=== PATIENT | female | born 1970 | race African-American/Black ===

== ENCOUNTER → 2017-04-20 | Outpatient (CLI) | payer BC ==
[2017-04-20 11:44] LABS: BASOPHILS % 0.7 % (0.0-2.0); EOSINOPHILS % 0.5 % (0.0-5.0); HEMATOCRIT. 35.1 % (36.0-48.0); HEMOGLOBIN. 11.5 g/dL (12.0-16.0); LYMPHOCYTES % 41.3 % (20.0-50.0); MEAN CORPUSCULAR HEMOGLOBIN 26.3 pg (28.0-32.0); MEAN PLATELET VOLUME 7.1 fl (7.4-10.4); NEUTROPHILS % 51.5 % (40.0-76.0); PLATELET 372 x1000/uL (130-400); RED BLOOD CELL COUNT 4.38 mill/uL (4.2-5.4)
[2017-04-20 11:51] LABS: INR 1.1; PARTIAL THROMBOPLASTIN TIME 26.3 sec (23.4-31.0); PROTHROMBIN TIME 11.5 sec (9.4-11.6)
[2017-04-20 12:10] LABS: B-HCG QUANTITATIVE < 1 mIU/mL (<3); CARBON DIOXIDE 33 mEq/L (21-32); CHLORIDE 103 mEq/L (98-107); TOTAL IRON BINDING CAPACITY 294 ug/dL (250-450)
[2017-04-20 12:39] LABS: HEPATITIS B SURFACE ANTIGEN NEGATIVE
[2017-04-20 13:07] LABS: HEPATITIS B CORE AB IGM NEGATIVE
[2017-04-20 13:09] LABS: VITAMIN B12 SERUM > 2000.0 pg/mL (211-911)
[2017-04-20 15:34] LABS: HEPATITIS A AB IGM NEGATIVE (NEGATIVE)
[2017-04-21 09:06] LABS: FOLICLE STIMULATING HORMONE 11.9 mIU/mL (.)
[2017-04-22 13:12] LABS: CHLAMYDIA TRACHOMATIS NAA Negative (Negative); NEISSERIA GONORRHOEAE NAA Negative (Negative)
== END | disposition home or self-care (01) ==
LOC: CCL 07:56
PROVIDERS: ATTEND Internal Medicine Geriatric Medicine
DX: Z00.00 Encounter for general adult medical examination without abnormal findings (principal); Z79.899 Other long term (current) drug therapy
CPT/HCPCS: 36415; 80053; 82270; 82306; 82607; 82746; 83001; 83036; 83540; 83550; 84443; 84702; 85025; 85610; 85730; 86592; 86705; 86709; 86803; 87186; 87340; 87491; 87591

== ENCOUNTER → 2017-04-21 | Outpatient (CLI) | payer BC | END | disposition home or self-care (01) | LOC: MAMMO 08:50 | PROVIDERS: ATTEND Internal Medicine Geriatric Medicine | DX: Z12.31 Encounter for screening mammogram for malignant neoplasm of breast (principal) | CPT/HCPCS: G0202 ==

== ENCOUNTER → 2018-03-24 | Outpatient (CLI) | payer BC ==
[2018-03-24 11:08] LABS: CLARITY URINE CLEAR (CLEAR); COLOR URINE YELLOW (YELLOW); KETONES URINE NEGATIVE (NEGATIVE); LEUKOCYTE ESTERASE URINE NEGATIVE (NEGATIVE); NITRITE URINE NEGATIVE (NEGATIVE); OCCULT BLOOD URINE NEGATIVE (NEGATIVE); PH URINE 5.5 (4.5-8.0); PROTEIN URINE NEGATIVE (NEGATIVE); SPECIFIC GRAVITY URINE 1.019 (1.005-1.030); UROBILINOGEN URINE 0.2 E.U./dL (0.2-1.0)
[2018-03-24 11:15] LABS: BASOPHILS % 0.6 % (0.0-2.0); EOSINOPHILS % 0.9 % (0.0-5.0); HEMATOCRIT. 33.3 % (36.0-48.0); LYMPHOCYTES % 31.5 % (20.0-50.0); MEAN CORPUSCULAR HEMOGLOBIN 25.6 pg (28.0-32.0); MEAN CORPUSCULAR VOLUME 77.8 fL (81.0-99.0); MEAN PLATELET VOLUME 7.2 fl (7.4-10.4); MONOCYTES % 8.2 % (2.0-8.0); NEUTROPHILS % 58.8 % (40.0-76.0); PLATELET 387 x1000/uL (130-400); RED BLOOD CELL COUNT 4.28 mill/uL (4.2-5.4); RED CELL DISTRIBUTION WIDTH 17.2 % (11.6-14.6)
[2018-03-24 11:24] LABS: CHLORIDE 103 mEq/L (98-107)
[2018-03-24 11:32] LABS: LDL CHOLESTEROL 101 mg/dL (5-100)
[2018-03-24 11:33] LABS: HDL CHOLESTEROL 90 mg/dL (40-59)
[2018-03-24 11:34] LABS: TOTAL IRON BINDING CAPACITY 370 ug/dL (250-450)
[2018-03-24 11:50] LABS: VITAMIN B12 SERUM 1126 pg/mL (211-911)
== END | disposition home or self-care (01) ==
LOC: LAB 10:36
PROVIDERS: ATTEND Internal Medicine Geriatric Medicine
DX: Z00.01 Encounter for general adult medical examination with abnormal findings (principal); I10 Essential (primary) hypertension; N39.0 Urinary tract infection, site not specified
CPT/HCPCS: 36415; 80053; 80061; 81003; 82607; 83036; 83540; 83550; 84443; 85025; 86592; 87086

== ENCOUNTER → 2018-06-10 | Outpatient (CLI) | payer BC ==
[~2018-06-10] MED LIST: DIATR MEGLU/DIATRIZOATE SOLN 120ML ONE; IOHEXOL-300 100 ML BOTTLE ONE
== END | disposition home or self-care (01) ==
LOC: CT 13:04
PROVIDERS: ATTEND Internal Medicine Geriatric Medicine
DX: R10.9 Unspecified abdominal pain (principal)
CPT/HCPCS: 74178; Q9967; Q9963

== ENCOUNTER → 2018-09-05 | Outpatient (CLI) | payer BC ==
[~2018-09-05] MED LIST changes: +ALPR0.5T PO; +BUPR300T52 PO; -DIATR MEGLU/DIATRIZOATE SOLN 120ML ONE; +DOCU-138 PO; +HYDR4TAB4 PO; -IOHEXOL-300 100 ML BOTTLE ONE; +LOSA1TAB37 PO; +ONDA8TAB6 PO; +RANI150T7 PO
== END | disposition home or self-care (01) ==
LOC: MRI 11:14
PROVIDERS: ATTEND Internal Medicine Geriatric Medicine
DX: M47.817 Spondylosis without myelopathy or radiculopathy, lumbosacral region (principal); M48.061 Spinal stenosis, lumbar region without neurogenic claudication
CPT/HCPCS: 72148

== ENCOUNTER → 2018-09-09 | Outpatient (CLI) | payer BC ==
[~2018-09-09] MED LIST changes: +DIATR MEGLU/DIATRIZOATE SOLN 30ML ONE
== END | disposition home or self-care (01) ==
LOC: CT 08:34 → EEVIPCON 08:34
PROVIDERS: ATTEND Internal Medicine Geriatric Medicine
DX: C18.9 Malignant neoplasm of colon, unspecified (principal); I11.9 Hypertensive heart disease without heart failure
CPT/HCPCS: 74176; 93306; Q9963

== ENCOUNTER → 2018-09-28 | Outpatient (CLI) | payer BC ==
[~2018-09-28] MED LIST changes: -DIATR MEGLU/DIATRIZOATE SOLN 30ML ONE; +LEVOFLOXACIN 500MG PREMIX 100 ML IV ONE; +METRONIDAZOLE 500 MG PREMIX 100 ML IV ONE
[2018-09-28 09:17] LABS: CLARITY URINE CLEAR (CLEAR); COLOR URINE YELLOW (YELLOW); KETONES URINE NEGATIVE (NEGATIVE); LEUKOCYTE ESTERASE URINE NEGATIVE (NEGATIVE); NITRITE URINE NEGATIVE (NEGATIVE); OCCULT BLOOD URINE NEGATIVE (NEGATIVE); PROTEIN URINE NEGATIVE (NEGATIVE); UROBILINOGEN URINE 0.2 E.U./dL (0.2-1.0)
[2018-09-28 09:18] LABS: BASOPHILS % 0.3 % (0.0-2.0); EOSINOPHILS % 1.1 % (0.0-5.0); HEMATOCRIT. 33.3 % (36.0-48.0); HEMOGLOBIN. 10.7 g/dL (12.0-16.0); LYMPHOCYTES % 8.6 % (20.0-50.0); MEAN CORPUSCULAR HEMOGLOBIN 27.1 pg (28.0-32.0); MEAN CORPUSCULAR VOLUME 84.5 fL (81.0-99.0); MONOCYTES % 5.5 % (2.0-8.0); NEUTROPHILS % 84.5 % (40.0-76.0); RED BLOOD CELL COUNT 3.94 mill/uL (4.2-5.4); RED CELL DISTRIBUTION WIDTH 17.9 % (11.6-14.6)
[2018-09-28 09:28] LABS: CHLORIDE 105 mEq/L (98-107)
== END | disposition home or self-care (01) ==
LOC: LAB 08:45
PROVIDERS: ATTEND Internal Medicine Geriatric Medicine
DX: Z01.812 Encounter for preprocedural laboratory examination (principal); C20 Malignant neoplasm of rectum
CPT/HCPCS: 36415; 82378

== ENCOUNTER → 2018-09-30 | Outpatient (CLI) | payer BC ==
[~2018-09-30] MED LIST changes: -LEVOFLOXACIN 500MG PREMIX 100 ML IV ONE; -METRONIDAZOLE 500 MG PREMIX 100 ML IV ONE
[2018-09-30 12:26] LABS: INR 1.1; PARTIAL THROMBOPLASTIN TIME 29.4 sec (23.4-31.0); PROTHROMBIN TIME 10.6 sec (9.1-11.1)
== END | disposition home or self-care (01) ==
LOC: LAB 10:48
PROVIDERS: ATTEND Surgery
DX: K62.89 Other specified diseases of anus and rectum (principal)
CPT/HCPCS: 36415; 80076

== ENCOUNTER 2018-10-06 05:14 | Inpatient (IN) | payer BC ==
[~2018-10-06] VITALS: Ht 167.6 cm; Wt 80.3 kg
[2018-10-06] MEDS ORDERED: BUPIVACAINE HCL 0.5% (5MG/ML) 50ML ONE (06:06)
[2018-10-06] MEDS ORDERED: INDOCYANINE GREEN 25 MG VIAL IV ONE (06:06)
[2018-10-06] MEDS ORDERED: SKIN ADHESIVE 0.7 GM EA TOP ONE ×2 (06:07→06:08)
[2018-10-06] MEDS ORDERED: METHYLENE BLUE 50 MG/10 ML AMP IV ONE (06:16)
[2018-10-06] MEDS ORDERED: NORMAL SALINE 0.9% 10 ML SYR ONE (06:17)
[2018-10-06] MEDS ORDERED: BACITRACIN 50,000 UNITS/VIAL ONE (06:17)
[2018-10-06] MEDS ORDERED: BUPIVACAINE HCL/EPINEPHRINE 0.5%/0.0005 30ML ONE (06:17)
[2018-10-06] MEDS ORDERED: SODIUM CHLORIDE 0.9% IRRIG SOL 1,000 ML IR ONE (06:18)
[2018-10-06] MEDS ORDERED: SODIUM CHLORIDE 0.9% IRRIG SOL 3,000 ML IR ONE (06:18)
[2018-10-06] MEDS ORDERED: VASOPRESSIN 20 UNIT/ML 1ML ONE (06:18)
[2018-10-06] MEDS ORDERED: LACTATED RINGERS 1,000 ML IV SCH (06:25)
[2018-10-06 06:33] LABS: UCG SCREEN NEGATIVE
[2018-10-06 06:49] LABS: HEMATOCRIT. 34.1 % (36.0-48.0); HEMOGLOBIN. 11.2 g/dL (12.0-16.0); MEAN CORPUSCULAR HEMOGLOBIN 27.8 pg (28.0-32.0); MEAN CORPUSCULAR VOLUME 84.7 fL (81.0-99.0); RED BLOOD CELL COUNT 4.03 mill/uL (4.2-5.4); RED CELL DISTRIBUTION WIDTH 16.2 % (11.6-14.6)
[2018-10-06 07:18] LABS: PLATELET ESTIMATE NORMAL
[2018-10-06 08:30] VITALS: BP 104/72
[2018-10-06] MEDS ORDERED: ROCURONIUM BROMIDE 10MG/ML VIAL 5ML IV ONE (09:49)
[2018-10-06] MEDS ORDERED: ONDANSETRON HCL 4MG/2ML INJ IV PRN (13:45)
[2018-10-06] MEDS: HYDROMORPHONE HCL/PF 2MG/ML CPJ IV PRN ×8 (14:18→16:34)
[2018-10-06] MEDS ORDERED: DEXT 5%/0.45% NACL KCL 20MEQ/L 1,000 ML IV SCH (14:30)
[2018-10-06] MEDS ORDERED: DIPHENHYDRAMINE INJ IV PRN (18:00)
[2018-10-06] MEDS ORDERED: NALOXONE INJ IV PRN (18:00)
[2018-10-06] MEDS ORDERED: HYDROMORPHONE PCA 50 ML IV ONE (18:05)
[2018-10-06] MEDS: HYDROMORPHONE PCA 10MG/50ML IV PRN (18:29)
[2018-10-06 18:51] VITALS: BP 107/71
[2018-10-06 20:00] VITALS: BP 104/72
[2018-10-06] MEDS ORDERED: LEVOFLOXACIN 500MG PREMIX 100 ML IV NR (20:00)
[2018-10-06] MEDS: METRONIDAZOLE 500 MG PREMIX 100 ML IV SCH (23:27)
[2018-10-07] VITALS (11 sets, daily range): BP systolic 99–126; BP diastolic 49–83
[2018-10-07] MEDS: FAMOTIDINE 20MG/2ML VIAL IV SCH ×3 (00:34→22:11)
[2018-10-07] MEDS: METRONIDAZOLE 500 MG PREMIX 100 ML IV SCH ×2 (04:49→13:07)
[2018-10-07] MEDS: HYDROMORPHONE PCA 10MG/50ML IV PRN ×2 (04:49→23:43)
[2018-10-07] MEDS ORDERED: SODIUM CHLORIDE 0.9% 500 ML IV ONE (08:15)
[2018-10-07] MEDS: ONDANSETRON INJ IV PRN ×3 (08:51→22:11)
[2018-10-07] MEDS ORDERED: ENOXAPARIN 40MG/0.4ML SYR SUBCUT SCH (09:00)
[2018-10-07 17:03] LABS: BASOPHILS % 0.1 % (0.0-2.0); EOSINOPHILS % 0.1 % (0.0-5.0); LYMPHOCYTES % 7.1 % (20.0-50.0); MEAN CORPUSCULAR HEMOGLOBIN 27.3 pg (28.0-32.0); MEAN PLATELET VOLUME 9.8 fl (7.4-10.4); MONOCYTES % 10.2 % (2.0-8.0); NEUTROPHILS % 82.5 % (40.0-76.0); RED BLOOD CELL COUNT 2.13 mill/uL (4.2-5.4)
[2018-10-07 17:08] LABS: HEMOGLOBIN. 5.8 g/dL (12.0-16.0)
[2018-10-07 17:09] LABS: HEMATOCRIT. 18.1 % (36.0-48.0)
[2018-10-07 17:10] LABS: PLATELET 42 x1000/uL (130-400)
[2018-10-07 20:54] LABS: PLATELET ESTIMATE DECREASED
[2018-10-08] VITALS (16 sets, daily range): BP systolic 108–151; BP diastolic 66–86
[2018-10-08 04:54] LABS: HEMATOCRIT 22.5 % (36.0-48.0); HEMOGLOBIN 7.4 g/dL (12.0-16.0)
[2018-10-08 07:23] LABS: BASOPHILS % 0.3 % (0.0-2.0); HEMATOCRIT. 21.3 % (36.0-48.0); HEMOGLOBIN. 7.1 g/dL (12.0-16.0); LYMPHOCYTES % 8.1 % (20.0-50.0); MEAN CORPUSCULAR HEMOGLOBIN 28.6 pg (28.0-32.0); MEAN CORPUSCULAR VOLUME 85.5 fL (81.0-99.0); MEAN PLATELET VOLUME 8.5 fl (7.4-10.4); MONOCYTES % 11.5 % (2.0-8.0); NEUTROPHILS % 80.1 % (40.0-76.0); PLATELET 113 x1000/uL (130-400); RED BLOOD CELL COUNT 2.49 mill/uL (4.2-5.4); RED CELL DISTRIBUTION WIDTH 15.6 % (11.6-14.6)
[2018-10-08 08:02] LABS: CHLORIDE 111 mEq/L (98-107)
[2018-10-08] MEDS: FAMOTIDINE 20MG/2ML VIAL IV SCH ×2 (09:00→20:44)
[2018-10-08] MEDS: ONDANSETRON INJ IV PRN ×2 (16:22→21:02)
[2018-10-08 16:37] LABS: HEMATOCRIT 30.5 % (36.0-48.0); HEMOGLOBIN 10.3 g/dL (12.0-16.0)
[2018-10-08] MEDS: DEXT 5%/0.45% NACL 1000ML 1,000 ML IV SCH ×2 (17:21→18:30)
[2018-10-08] MEDS: MORPHINE SULFATE 4 MG/ML CPJ (NOT FOR IM USE) IV PRN (17:36)
[2018-10-08] MEDS: HYDROMORPHONE PCA 10MG/50ML IV PRN (18:34)
[2018-10-08] MEDS ORDERED: ENOXAPARIN 40MG/0.4ML SYR SUBCUT SCH (20:00)
[2018-10-08 23:38] LABS: HEMATOCRIT 28.7 % (36.0-48.0); HEMOGLOBIN 9.8 g/dL (12.0-16.0)
[2018-10-09] VITALS (11 sets, daily range): BP systolic 109–138; BP diastolic 68–84
[2018-10-09] MEDS: DEXT 5%/0.45% NACL 1000ML 1,000 ML IV SCH ×2 (03:26→15:23)
[2018-10-09 08:09] LABS: CHLORIDE 109 mEq/L (98-107)
[2018-10-09 08:25] LABS: BASOPHILS % 0.5 % (0.0-2.0); EOSINOPHILS % 0.2 % (0.0-5.0); HEMATOCRIT. 29.6 % (36.0-48.0); HEMOGLOBIN. 9.8 g/dL (12.0-16.0); LYMPHOCYTES % 9.1 % (20.0-50.0); MEAN CORPUSCULAR HEMOGLOBIN 28.3 pg (28.0-32.0); MEAN PLATELET VOLUME 9.7 fl (7.4-10.4); MONOCYTES % 10.8 % (2.0-8.0); NEUTROPHILS % 79.4 % (40.0-76.0); PLATELET 137 x1000/uL (130-400); RED BLOOD CELL COUNT 3.45 mill/uL (4.2-5.4)
[2018-10-09] MEDS: FAMOTIDINE 20MG/2ML VIAL IV SCH ×2 (08:45→20:14)
[2018-10-09] MEDS: ONDANSETRON INJ IV PRN ×3 (08:50→20:14)
[2018-10-09] MEDS: MORPHINE SULFATE 4 MG/ML CPJ (NOT FOR IM USE) IV PRN (10:44)
[2018-10-09] MEDS: HYDROMORPHONE PCA 10MG/50ML IV PRN (11:07)
[2018-10-10] VITALS (9 sets, daily range): BP systolic 128–162; BP diastolic 72–88
[2018-10-10] MEDS: DEXT 5%/0.45% NACL 1000ML 1,000 ML IV SCH ×3 (00:13→20:15)
[2018-10-10] MEDS: HYDROMORPHONE PCA 10MG/50ML IV PRN (01:08)
[2018-10-10] MEDS: ONDANSETRON INJ IV PRN ×3 (01:08→20:30)
[2018-10-10 06:58] LABS: BASOPHILS % 0.4 % (0.0-2.0); EOSINOPHILS % 0.8 % (0.0-5.0); HEMATOCRIT. 28.4 % (36.0-48.0); HEMOGLOBIN. 9.5 g/dL (12.0-16.0); LYMPHOCYTES % 8.5 % (20.0-50.0); MEAN CORPUSCULAR HEMOGLOBIN 28.7 pg (28.0-32.0); MEAN CORPUSCULAR VOLUME 86.1 fL (81.0-99.0); MEAN PLATELET VOLUME 8.7 fl (7.4-10.4); MONOCYTES % 10.7 % (2.0-8.0); NEUTROPHILS % 79.6 % (40.0-76.0); PLATELET 106 x1000/uL (130-400); RED CELL DISTRIBUTION WIDTH 14.8 % (11.6-14.6)
[2018-10-10 07:44] LABS: CHLORIDE 108 mEq/L (98-107)
[2018-10-10 08:31] LABS: TOTAL IRON BINDING CAPACITY 201 ug/dL (250-450)
[2018-10-10] MEDS: MORPHINE SULFATE 4 MG/ML CPJ (NOT FOR IM USE) IV PRN (08:39)
[2018-10-10] MEDS: FAMOTIDINE 20MG/2ML VIAL IV SCH ×2 (08:40→20:30)
[2018-10-10] MEDS ORDERED: CLONIDINE 0.1MG TABLET PO PRN (08:45)
[2018-10-10 13:08] LABS: HEMATOCRIT 29.2 % (36.0-48.0); HEMOGLOBIN 9.9 g/dL (12.0-16.0)
[2018-10-10 13:25] LABS: INR 1.1; PARTIAL THROMBOPLASTIN TIME 27.2 sec (23.4-31.0)
[2018-10-11] VITALS: BP 134/82
[2018-10-11] MEDS: ACETAMINOPHEN 325MG TABLET PO PRN (00:41)
[2018-10-11] MEDS: HYDROMORPHONE PCA 10MG/50ML IV PRN (00:49)
[2018-10-11 04:00] VITALS: BP 135/74
[2018-10-11 05:55] LABS: BASOPHILS % 0.4 % (0.0-2.0); EOSINOPHILS % 1.6 % (0.0-5.0); HEMATOCRIT. 28.3 % (36.0-48.0); HEMOGLOBIN. 9.4 g/dL (12.0-16.0); LYMPHOCYTES % 9.9 % (20.0-50.0); MEAN CORPUSCULAR HEMOGLOBIN 28.7 pg (28.0-32.0); MEAN CORPUSCULAR VOLUME 86.1 fL (81.0-99.0); MEAN PLATELET VOLUME 8.9 fl (7.4-10.4); MONOCYTES % 12.4 % (2.0-8.0); NEUTROPHILS % 75.7 % (40.0-76.0); PLATELET 167 x1000/uL (130-400); RED BLOOD CELL COUNT 3.29 mill/uL (4.2-5.4); RED CELL DISTRIBUTION WIDTH 14.4 % (11.6-14.6)
[2018-10-11] MEDS: DEXT 5%/0.45% NACL 1000ML 1,000 ML IV SCH (06:39)
[2018-10-11 06:50] LABS: CHLORIDE 108 mEq/L (98-107)
[2018-10-11 08:00] VITALS: BP 121/74
[2018-10-11] MEDS: FAMOTIDINE 20MG/2ML VIAL IV SCH ×2 (09:17→22:08)
[2018-10-11] MEDS: ONDANSETRON INJ IV PRN ×2 (09:18→17:12)
[2018-10-11] MEDS: FERROUS SULFATE 325MG TABLET PO SCH (10:00)
[2018-10-11 12:00] VITALS: BP 149/98
[2018-10-11] MEDS: LOSARTAN POTASSIUM 50 MG TABLET PO SCH (12:05)
[2018-10-11] MEDS ORDERED: TRAMADOL 50MG TABLET PO PRN (12:30)
[2018-10-11 16:00] VITALS: BP 119/68
[2018-10-11] MEDS: HYDROCODONE/ACETAMINOPHEN 5/325MG TABLET PO PRN (16:58)
[2018-10-11 20:00] VITALS: BP 135/70
[2018-10-12] VITALS: BP 130/71
[2018-10-12] MEDS: HYDROCODONE/ACETAMINOPHEN 5/325MG TABLET PO PRN ×5 (03:41→21:10)
[2018-10-12 04:00] VITALS: BP 155/69
[2018-10-12 06:36] LABS: CHLORIDE 109 mEq/L (98-107)
[2018-10-12 06:52] LABS: HEMATOCRIT. 29.5 % (36.0-48.0); HEMOGLOBIN. 9.9 g/dL (12.0-16.0); MEAN CORPUSCULAR HEMOGLOBIN 28.9 pg (28.0-32.0); MEAN CORPUSCULAR VOLUME 86.1 fL (81.0-99.0); MEAN PLATELET VOLUME 9.8 fl (7.4-10.4); PLATELET 200 x1000/uL (130-400); RED BLOOD CELL COUNT 3.42 mill/uL (4.2-5.4); RED CELL DISTRIBUTION WIDTH 14.8 % (11.6-14.6)
[2018-10-12 08:00] VITALS: BP 110/74
[2018-10-12] MEDS: FERROUS SULFATE 325MG TABLET PO SCH (09:41)
[2018-10-12] MEDS: FAMOTIDINE 20MG/2ML VIAL IV SCH ×2 (09:41→21:05)
[2018-10-12] MEDS: LOSARTAN POTASSIUM 50 MG TABLET PO SCH (09:41)
[2018-10-12] MEDS: ONDANSETRON INJ IV PRN ×3 (09:48→21:05)
[2018-10-12 10:56] LABS: PLATELET ESTIMATE NORMAL
[2018-10-12 11:42] VITALS: BP 132/64
[2018-10-12 16:00] VITALS: BP 136/70
[2018-10-12 20:00] VITALS: BP 135/83
[2018-10-13] VITALS: BP 148/66
[2018-10-13] MEDS: HYDROCODONE/ACETAMINOPHEN 5/325MG TABLET PO PRN ×3 (01:23→10:38)
[2018-10-13 04:00] VITALS: BP 120/63
[2018-10-13] MEDS: ONDANSETRON 4MG ODT PO PRN ×2 (06:08→10:38)
[2018-10-13 08:00] VITALS: BP 130/64
[2018-10-13] MEDS: FAMOTIDINE 20MG/2ML VIAL IV SCH (08:48)
[2018-10-13] MEDS: LOSARTAN POTASSIUM 50 MG TABLET PO SCH (08:55)
[2018-10-13] MEDS: FERROUS SULFATE 325MG TABLET PO SCH (08:55)
[2018-10-13] MEDS: ACETAMINOPHEN 325MG TABLET PO PRN (08:56)
[2018-10-13 09:42] VITALS: BP 130/64
[2018-10-13 10:38] VITALS: BP 139/70
[2018-10-18] MEDS ORDERED: SODIUM CHLORIDE 0.9% 500 ML IV SCH (08:00)
== END 2018-10-13 11:33 | disposition home or self-care (01) | DRG 330 ==
LOC: OR 05:14 → 6WST 08:45 → 6EST 20:49 → 3WST 10-08 10:44 → 6EST 10-10 10:11
PROVIDERS: ADMIT Surgery; ATTEND Surgery
PROC: 8E0W4CZ Robotic Assisted Procedure of Trunk Region, Percutaneous Endoscopic Approach (ICD-10-PCS; principal; 2018-10-06)
PROC: 0DBN4ZZ Excision of Sigmoid Colon, Percutaneous Endoscopic Approach (ICD-10-PCS; 2018-10-06)
PROC: 0DNN4ZZ Release Sigmoid Colon, Percutaneous Endoscopic Approach (ICD-10-PCS; 2018-10-06)
PROC: 0UT94ZZ Resection of Uterus, Percutaneous Endoscopic Approach (ICD-10-PCS; 2018-10-06)
PROC: 07BC4ZZ Excision of Pelvis Lymphatic, Percutaneous Endoscopic Approach (ICD-10-PCS; 2018-10-06)
PROC: 0UT24ZZ Resection of Bilateral Ovaries, Percutaneous Endoscopic Approach (ICD-10-PCS; 2018-10-06)
PROC: 0UB74ZZ Excision of Bilateral Fallopian Tubes, Percutaneous Endoscopic Approach (ICD-10-PCS; 2018-10-06)
PROC: 0T788DZ Dilation of Bilateral Ureters with Intraluminal Device, Via Natural or Artificial Opening Endoscopic (ICD-10-PCS; 2018-10-06)
PROC: 0DTP4ZZ Resection of Rectum, Percutaneous Endoscopic Approach (ICD-10-PCS; 2018-10-06)
PROC: 8E0W4CZ Robotic Assisted Procedure of Trunk Region, Percutaneous Endoscopic Approach (ICD-10-PCS; 2018-10-06)
PROC: 30233N1 Transfusion of Nonautologous Red Blood Cells into Peripheral Vein, Percutaneous Approach (ICD-10-PCS; 2018-10-07)
DX: C20 Malignant neoplasm of rectum (principal); K56.7 Ileus, unspecified; E44.0 Moderate protein-calorie malnutrition; D64.9 Anemia, unspecified; I95.9 Hypotension, unspecified; I10 Essential (primary) hypertension; D69.6 Thrombocytopenia, unspecified; Y84.2 Radiological procedure and radiotherapy as the cause of abnormal reaction of the patient, or of later complication, without mention of misadventure at the time of the procedure; N73.6 Female pelvic peritoneal adhesions (postinfective); Z92.3 Personal history of irradiation; Z92.21 Personal history of antineoplastic chemotherapy
CPT/HCPCS: 36415; 74176; 80048; 81025; 83540; 83550; 84702; 85014; 85018; 86850; 86900; 86920; 88304; 88305; 88307; 88309; 88329; 97116; 97162; C1893; J0171; J0330; J0690; J1100; J1170; J1956; J2250; J2270; J2370; J2405; J2704; J2710; J3010; J3490; J7040; J7050; P9016; Q0162; Q9957; Q9968

== ENCOUNTER 2018-10-20 12:20 | Inpatient (IN) | payer BC ==
[~2018-10-20] VITALS: Ht 167.6 cm; Wt 72.6 kg
[2018-10-20] MEDS ORDERED: MEPERIDINE HCL/PF 25MG/ML CPJ IV PRN (12:45)
[2018-10-20] MEDS ORDERED: ONDANSETRON HCL 4MG/2ML INJ IV PRN (12:45)
[2018-10-20] MEDS ORDERED: LABETALOL HCL 20MG/4ML CARPUJECT IV PRN (12:45)
[2018-10-20] MEDS ORDERED: ROCURONIUM BROMIDE 10MG/ML VIAL 5ML IV ONE (12:46)
[2018-10-20] MEDS ORDERED: MIDAZOLAM HCL 2 MG/2 ML VIAL ONE (12:46)
[2018-10-20] MEDS ORDERED: FENTANYL CITRATE/PF 50MCG/ML 2ML VIAL ONE (12:46)
[2018-10-20] MEDS ORDERED: GLYCOPYRROLATE 0.2 MG/ML 2ML VIAL ONE ×2 (12:46→15:54)
[2018-10-20] MEDS ORDERED: PROPOFOL 200MG/20ML VIAL IV ONE (12:46)
[2018-10-20] MEDS ORDERED: NEOSTIGMINE METHYLSULFATE 1MG/ML 10 ML VIAL ONE (12:46)
[2018-10-20] MEDS ORDERED: BUPIVACAINE HCL 0.5% (5MG/ML) 50ML ONE (13:02)
[2018-10-20] MEDS ORDERED: BACITRACIN 50,000 UNITS/VIAL ONE (13:15)
[2018-10-20] MEDS ORDERED: NORMAL SALINE 0.9% 10 ML SYR ONE (13:15)
[2018-10-20] MEDS ORDERED: DEXAMETHASONE 4MG/ML 1ML VIAL ONE (13:33)
[2018-10-20] MEDS ORDERED: HYDROMORPHONE HCL/PF 2MG/ML (OR) ONE ×2 (13:56→16:13)
[2018-10-20] MEDS ORDERED: LIDOCAINE HCL/PF 1% 10 MG/ML 5ML VIAL ONE (13:58)
[2018-10-20] MEDS ORDERED: SUCCINYLCHOLINE CHLORIDE 200MG/10ML IV ONE (13:58)
[2018-10-20 14:18] LABS: CHLORIDE 99 mEq/L (98-107)
[2018-10-20 14:22] LABS: INR 1.1; PARTIAL THROMBOPLASTIN TIME 34.8 sec (23.4-31.0); PROTHROMBIN TIME 11.1 sec (9.1-11.1)
[2018-10-20 14:35] LABS: HEMATOCRIT 23.7 % (36.0-48.0); MEAN CORPUSCULAR HEMOGLOBIN 28.6 pg (28.0-32.0); PLATELET 442 x1000/uL (130-400); RED BLOOD CELL COUNT 2.79 mill/uL (4.2-5.4); RED CELL DISTRIBUTION WIDTH 14.9 % (11.6-14.6)
[2018-10-20] MEDS ORDERED: BUPIVACAINE HCL 0.5% 290 ML in ON-Q PM015 DRUG DELIV DEVICE 1 EA IR STA (15:09)
[2018-10-20] MEDS ORDERED: ACETAMINOPHEN 650MG SUPP PR PRN (16:45)
[2018-10-20] MEDS ORDERED: NALOXONE INJ IV PRN (16:45)
[2018-10-20] MEDS ORDERED: DIPHENHYDRAMINE INJ IV PRN (16:45)
[2018-10-20] MEDS: HYDROMORPHONE HCL/PF 2MG/ML CPJ IV PRN ×4 (16:52→17:32)
[2018-10-20] MEDS: HYDROMORPHONE PCA 10MG/50ML IV PRN (16:56)
[2018-10-20 18:25] VITALS: BP 149/87
[2018-10-20] MEDS ORDERED: LEVOFLOXACIN 500MG PREMIX 100 ML IV SCH (18:30)
[2018-10-20] MEDS: ONDANSETRON INJ IV PRN (19:10)
[2018-10-20 20:00] VITALS: BP 147/83
[2018-10-20] MEDS: MORPHINE SULFATE 4 MG/ML CPJ (NOT FOR IM USE) IV PRN (20:08)
[2018-10-20 21:30] VITALS: BP 147/83
[2018-10-20 22:09] LABS: BASOPHILS % 1.1 % (0.0-2.0); EOSINOPHILS % 0.7 % (0.0-5.0); HEMATOCRIT. 37.9 % (36.0-48.0); HEMOGLOBIN. 11.9 g/dL (12.0-16.0); LYMPHOCYTES % 13.3 % (20.0-50.0); MEAN CORPUSCULAR HEMOGLOBIN 25.3 pg (28.0-32.0); MEAN CORPUSCULAR VOLUME 80.4 fL (81.0-99.0); MEAN PLATELET VOLUME 8.4 fl (7.4-10.4); NEUTROPHILS % 83.9 % (40.0-76.0); PLATELET 231 x1000/uL (130-400); RED BLOOD CELL COUNT 4.71 mill/uL (4.2-5.4); RED CELL DISTRIBUTION WIDTH 17.9 % (11.6-14.6)
[2018-10-20] MEDS: FAMOTIDINE 20MG/2ML VIAL IV SCH (23:19)
[2018-10-21] VITALS: BP 134/84
[2018-10-21] MEDS: MORPHINE SULFATE 4 MG/ML CPJ (NOT FOR IM USE) IV PRN ×3 (00:22→07:07)
[2018-10-21] MEDS: METRONIDAZOLE 500 MG PREMIX 100 ML IV SCH ×3 (00:23→10:45)
[2018-10-21] MEDS: HYDROMORPHONE PCA 10MG/50ML IV PRN (03:55)
[2018-10-21 04:00] VITALS: BP 133/82
[2018-10-21] MEDS: DEXT 5%/0.45% NACL KCL 20MEQ/L 1,000 ML IV SCH ×3 (05:27→20:51)
[2018-10-21] MEDS: ONDANSETRON INJ IV PRN (07:20)
[2018-10-21 08:00] VITALS: BP 130/75
[2018-10-21] MEDS: FAMOTIDINE 20MG/2ML VIAL IV SCH ×2 (09:34→20:52)
[2018-10-21 12:00] VITALS: BP 136/83
[2018-10-21] MEDS: ONDANSETRON HCL 4MG/2ML INJ IV SCH ×3 (12:29→21:16)
[2018-10-21 16:00] VITALS: BP 122/78
[2018-10-21 20:00] VITALS: BP 139/81
[2018-10-22] VITALS: BP 133/68
[2018-10-22] MEDS: HYDROMORPHONE PCA 10MG/50ML IV PRN (03:58)
[2018-10-22 04:00] VITALS: BP 131/79
[2018-10-22] MEDS: ONDANSETRON HCL 4MG/2ML INJ IV SCH ×7 (05:27→23:43)
[2018-10-22] MEDS: MORPHINE SULFATE 4 MG/ML CPJ (NOT FOR IM USE) IV PRN (06:08)
[2018-10-22 08:00] VITALS: BP 146/86
[2018-10-22] MEDS ORDERED: LIDOCAINE HCL 1% 20ML VIAL (Pyxis) INJ ONE (08:42)
[2018-10-22] MEDS: ONDANSETRON HCL 4MG/2ML INJ IV PRN (10:09)
[2018-10-22] MEDS: DEXT 5%/0.45% NACL KCL 20MEQ/L 1,000 ML IV SCH ×2 (11:06→20:16)
[2018-10-22] MEDS: FAMOTIDINE 20MG/2ML VIAL IV SCH ×2 (11:06→20:16)
[2018-10-22 11:47] VITALS: BP 140/94
[2018-10-22 17:54] VITALS: BP 140/89
[2018-10-22 20:00] VITALS: BP 154/84
[2018-10-23] VITALS: BP 137/84
[2018-10-23 04:00] VITALS: BP 142/71
[2018-10-23] MEDS: ONDANSETRON HCL 4MG/2ML INJ IV SCH ×5 (04:07→20:29)
[2018-10-23] MEDS: DEXT 5%/0.45% NACL KCL 20MEQ/L 1,000 ML IV SCH ×3 (05:50→23:00)
[2018-10-23 08:00] VITALS: BP 142/84
[2018-10-23] MEDS ORDERED: PHENOL/SODIUM PHENOLATE 1.4% SRPAY 177ML MM PRN (08:45)
[2018-10-23] MEDS: FAMOTIDINE 20MG/2ML VIAL IV SCH ×2 (09:15→20:32)
[2018-10-23] MEDS ORDERED: PHENOL/SODIUM PHENOLATE 1.4% SRPAY 177ML MM NR (09:15)
[2018-10-23 10:58] LABS: HEMATOCRIT. 25.6 % (36.0-48.0); HEMOGLOBIN. 8.4 g/dL (12.0-16.0); MEAN CORPUSCULAR HEMOGLOBIN 27.7 pg (28.0-32.0); MEAN CORPUSCULAR VOLUME 84.2 fL (81.0-99.0); MEAN PLATELET VOLUME 8.4 fl (7.4-10.4); PLATELET 230 x1000/uL (130-400); RED BLOOD CELL COUNT 3.03 mill/uL (4.2-5.4); RED CELL DISTRIBUTION WIDTH 15.7 % (11.6-14.6)
[2018-10-23 11:50] VITALS: BP 142/83
[2018-10-23 16:00] VITALS: BP 138/81
[2018-10-23] MEDS: HYDROMORPHONE PCA 10MG/50ML IV PRN (18:03)
[2018-10-23 20:00] VITALS: BP 133/78
[2018-10-24] VITALS: BP 139/84
[2018-10-24] MEDS: ONDANSETRON HCL 4MG/2ML INJ IV PRN (02:38)
[2018-10-24 04:00] VITALS: BP 151/79
[2018-10-24] MEDS: ONDANSETRON HCL 4MG/2ML INJ IV SCH ×6 (04:00→20:29)
[2018-10-24] MEDS: HYDROMORPHONE PCA 10MG/50ML IV PRN (06:50)
[2018-10-24 08:00] VITALS: BP 131/85
[2018-10-24] MEDS: FAMOTIDINE 20MG/2ML VIAL IV SCH (08:32)
[2018-10-24] MEDS: DEXT 5%/0.45% NACL KCL 20MEQ/L 1,000 ML IV SCH ×2 (08:33→20:30)
[2018-10-24] MEDS: ACETAMINOPHEN 325MG TABLET PO PRN ×2 (10:59→20:34)
[2018-10-24 11:54] VITALS: BP 147/86
[2018-10-24 17:58] LABS: PLATELET ESTIMATE NORMAL
[2018-10-24 20:00] VITALS: BP 143/83
[2018-10-25] VITALS: BP 143/86
[2018-10-25] MEDS: FAMOTIDINE 20MG/2ML VIAL IV SCH ×3 (00:21→22:18)
[2018-10-25] MEDS: ONDANSETRON HCL 4MG/2ML INJ IV SCH ×6 (00:45→20:45)
[2018-10-25 04:00] VITALS: BP 157/87
[2018-10-25 08:00] VITALS: BP 140/87
[2018-10-25 12:00] VITALS: BP 126/85
[2018-10-25 20:00] VITALS: BP 153/84
[2018-10-25] MEDS: ONDANSETRON HCL 4MG/2ML INJ IV PRN (22:40)
[2018-10-25] MEDS ORDERED: HYDROMORPHONE PCA 10MG/50ML IV PRN (23:45)
[2018-10-25] MEDS ORDERED: DIPHENHYDRAMINE INJ IV PRN (23:45)
[2018-10-25] MEDS ORDERED: ONDANSETRON INJ IV PRN (23:45)
[2018-10-25] MEDS ORDERED: NALOXONE INJ IV PRN (23:45)
[2018-10-26] MEDS: DEXT 5%/0.45% NACL KCL 20MEQ/L 1,000 ML IV SCH ×2 (00:19→13:26)
[2018-10-26] MEDS: ONDANSETRON HCL 4MG/2ML INJ IV SCH ×5 (01:55→21:41)
[2018-10-26 02:30] VITALS: BP 136/90
[2018-10-26] MEDS: ONDANSETRON HCL 4MG/2ML INJ IV PRN (04:53)
[2018-10-26 08:00] VITALS: BP 135/80
[2018-10-26] MEDS: FAMOTIDINE 20MG/2ML VIAL IV SCH ×2 (08:35→21:00)
[2018-10-26] MEDS: BUPROPION HCL 150MG TABLET XL 24HR PO SCH (11:23)
[2018-10-26 12:00] VITALS: BP 133/82
[2018-10-26 16:00] VITALS: BP 141/84
[2018-10-26] MEDS ORDERED: LORAZEPAM 2MG/ML CPJ IV PRN (16:30)
[2018-10-26 20:00] VITALS: BP 152/89
[2018-10-27] MEDS: DEXT 5%/0.45% NACL KCL 20MEQ/L 1,000 ML IV SCH ×3 (01:58→16:11)
[2018-10-27] MEDS: ONDANSETRON HCL 4MG/2ML INJ IV SCH ×6 (02:32→20:00)
[2018-10-27 04:00] VITALS: BP 161/93
[2018-10-27 08:00] VITALS: BP 138/89
[2018-10-27] MEDS: BUPROPION HCL 150MG TABLET XL 24HR PO SCH (08:39)
[2018-10-27] MEDS: FAMOTIDINE 20MG/2ML VIAL IV SCH ×2 (08:58→21:29)
[2018-10-27 12:22] VITALS: BP 122/67
[2018-10-27] MEDS: LORAZEPAM 2MG/ML CPJ IV PRN (15:12)
[2018-10-27 16:15] VITALS: BP 142/96
[2018-10-27 20:00] VITALS: BP 125/72
[2018-10-28] VITALS: BP 122/74
[2018-10-28] MEDS: ONDANSETRON HCL 4MG/2ML INJ IV SCH ×7 (01:28→23:29)
[2018-10-28] MEDS: DEXT 5%/0.45% NACL KCL 20MEQ/L 1,000 ML IV SCH ×2 (03:58→14:16)
[2018-10-28 04:00] VITALS: BP 143/78
[2018-10-28] MEDS: LORAZEPAM 2MG/ML CPJ IV PRN ×3 (06:00→23:29)
[2018-10-28 08:00] VITALS: BP 134/90
[2018-10-28] MEDS: BUPROPION HCL 150MG TABLET XL 24HR PO SCH (08:42)
[2018-10-28] MEDS: FAMOTIDINE 20MG/2ML VIAL IV SCH ×2 (08:45→21:00)
[2018-10-28] MEDS: ACETAMINOPHEN 325MG TABLET PO PRN (12:01)
[2018-10-28 12:08] VITALS: BP 139/81
[2018-10-28 13:36] LABS: CHLORIDE 100 mEq/L (98-107)
[2018-10-28 13:42] LABS: PHOSPHORUS 2.6 mg/dL (2.5-4.9)
[2018-10-28 15:59] VITALS: BP 139/81
[2018-10-28 20:00] VITALS: BP 121/80
[2018-10-28] MEDS ORDERED: TOTAL PARENTERAL NUTRITION 2,500 ML IV SCH (21:00)
[2018-10-28] MEDS: FAT EMULSIONS 500 ML IV SCH (21:00)
[2018-10-28] MEDS: BLOOD SUGAR DIAGNOSTIC STRIP TEST SCH ×2 (21:00→23:46)
[2018-10-29] VITALS: BP 132/81
[2018-10-29 04:00] VITALS: BP 120/79
[2018-10-29 08:00] VITALS: BP 131/90
[2018-10-29] MEDS: FAMOTIDINE 20MG/2ML VIAL IV SCH ×2 (08:45→21:37)
[2018-10-29] MEDS: ONDANSETRON HCL 4MG/2ML INJ IV SCH ×4 (08:45→21:17)
[2018-10-29] MEDS: BLOOD SUGAR DIAGNOSTIC STRIP TEST SCH ×3 (08:46→21:00)
[2018-10-29] MEDS: BUPROPION HCL 150MG TABLET XL 24HR PO SCH (08:46)
[2018-10-29] MEDS: FAT EMULSIONS 500 ML IV SCH (10:16)
[2018-10-29 12:00] VITALS: BP 116/76
[2018-10-29 16:00] VITALS: BP 128/83
[2018-10-29 20:00] VITALS: BP 119/80
[2018-10-29 20:23] LABS: CHLORIDE 95 mEq/L (98-107)
[2018-10-29 20:29] LABS: PHOSPHORUS 2.8 mg/dL (2.5-4.9)
[2018-10-29] MEDS ORDERED: TOTAL PARENTERAL NUTRITION 1,600 ML IV SCH (21:00)
[2018-10-29] MEDS: LORAZEPAM 2MG/ML CPJ IV PRN (21:37)
[2018-10-30] VITALS: BP 123/85
[2018-10-30 04:00] VITALS: BP 134/89
[2018-10-30] MEDS: ONDANSETRON HCL 4MG/2ML INJ IV SCH ×5 (04:06→21:39)
[2018-10-30] MEDS: BLOOD SUGAR DIAGNOSTIC STRIP TEST SCH ×4 (04:35→21:00)
[2018-10-30 10:11] LABS: CHLORIDE 101 mEq/L (98-107)
[2018-10-30 10:16] LABS: PHOSPHORUS 2.9 mg/dL (2.5-4.9)
[2018-10-30] MEDS: FAMOTIDINE 20MG/2ML VIAL IV SCH ×2 (10:21→21:39)
[2018-10-30] MEDS: BUPROPION HCL 150MG TABLET XL 24HR PO SCH (10:21)
[2018-10-30] MEDS: LORAZEPAM 2MG/ML CPJ IV PRN ×2 (13:08→22:21)
[2018-10-30 20:00] VITALS: BP 123/64
[2018-10-30] MEDS ORDERED: TOTAL PARENTERAL NUTRITION 1,600 ML IV SCH (21:00)
[2018-10-31] VITALS: BP 121/78
[2018-10-31] MEDS: ONDANSETRON HCL 4MG/2ML INJ IV SCH ×5 (01:48→22:10)
[2018-10-31] MEDS: BLOOD SUGAR DIAGNOSTIC STRIP TEST SCH ×4 (03:00→21:00)
[2018-10-31 04:00] VITALS: BP 123/77
[2018-10-31 08:00] VITALS: BP 123/79
[2018-10-31] MEDS: FAMOTIDINE 20MG/2ML VIAL IV SCH ×2 (08:57→21:44)
[2018-10-31] MEDS: BUPROPION HCL 150MG TABLET XL 24HR PO SCH (09:03)
[2018-10-31 09:29] LABS: CHLORIDE 95 mEq/L (98-107)
[2018-10-31 09:41] LABS: PHOSPHORUS 3.4 mg/dL (2.5-4.9)
[2018-10-31 12:00] VITALS: BP 115/65
[2018-10-31] MEDS: LORAZEPAM 2MG/ML CPJ IV PRN ×2 (12:57→21:13)
[2018-10-31 16:00] VITALS: BP 122/83
[2018-10-31 20:00] VITALS: BP 121/80
[2018-10-31] MEDS: TOTAL PARENTERAL NUTRITION 1,600 ML IV SCH (21:13)
[2018-10-31] MEDS: FAT EMULSIONS 500 ML IV SCH (21:13)
[2018-11-01] VITALS: BP 110/72
[2018-11-01] MEDS: ONDANSETRON HCL 4MG/2ML INJ IV SCH ×6 (00:47→20:59)
[2018-11-01 04:00] VITALS: BP 111/69
[2018-11-01 08:00] VITALS: BP 113/71
[2018-11-01] MEDS: FAMOTIDINE 20MG/2ML VIAL IV SCH ×2 (08:31→20:59)
[2018-11-01] MEDS: BUPROPION HCL 150MG TABLET XL 24HR PO SCH (08:31)
[2018-11-01] MEDS: BLOOD SUGAR DIAGNOSTIC STRIP TEST SCH (09:00)
[2018-11-01 12:00] VITALS: BP 125/63
[2018-11-01] MEDS: HYDROCODONE/ACETAMINOPHEN 5/325MG TABLET PO PRN ×4 (12:14→20:58)
[2018-11-01 16:00] VITALS: BP 109/73
[2018-11-01 20:00] VITALS: BP 124/76
[2018-11-01] MEDS ORDERED: TOTAL PARENTERAL NUTRITION 1,600 ML IV SCH (21:00)
[2018-11-01] MEDS: TOTAL PARENTERAL NUTRITION 1,600 ML IV SCH (21:00)
[2018-11-01] MEDS ORDERED: LORAZEPAM 2MG/ML CPJ IV PRN (21:30)
[2018-11-02] VITALS: BP 117/78
[2018-11-02] MEDS: ONDANSETRON HCL 4MG/2ML INJ IV SCH ×7 (00:30→22:45)
[2018-11-02] MEDS: HYDROCODONE/ACETAMINOPHEN 5/325MG TABLET PO PRN ×7 (00:30→23:30)
[2018-11-02 04:00] VITALS: BP 106/74
[2018-11-02 08:00] VITALS: BP 100/61
[2018-11-02] MEDS: FAMOTIDINE 20MG/2ML VIAL IV SCH ×2 (09:16→20:12)
[2018-11-02] MEDS: BUPROPION HCL 150MG TABLET XL 24HR PO SCH (09:17)
[2018-11-02] MEDS: BLOOD SUGAR DIAGNOSTIC STRIP TEST SCH (09:30)
[2018-11-02 11:43] VITALS: BP 112/75
[2018-11-02 16:00] VITALS: BP 125/71
[2018-11-02 20:00] VITALS: BP 119/75
[2018-11-02] MEDS: LORAZEPAM 2MG/ML CPJ IV PRN (22:45)
[2018-11-03] MEDS: HYDROCODONE/ACETAMINOPHEN 5/325MG TABLET PO PRN ×9 (02:42→23:47)
[2018-11-03 08:00] VITALS: BP 115/80
[2018-11-03] MEDS: FAMOTIDINE 20MG/2ML VIAL IV SCH ×2 (08:37→20:31)
[2018-11-03] MEDS: BUPROPION HCL 150MG TABLET XL 24HR PO SCH (08:45)
[2018-11-03] MEDS: BLOOD SUGAR DIAGNOSTIC STRIP TEST SCH (09:00)
[2018-11-03] MEDS: ONDANSETRON HCL 4MG/2ML INJ IV SCH ×4 (09:20→20:31)
[2018-11-03 12:00] VITALS: BP 144/87
[2018-11-03] MEDS: LORAZEPAM 2MG/ML CPJ IV PRN ×2 (14:42→23:47)
[2018-11-03 16:00] VITALS: BP 125/85
[2018-11-03 20:00] VITALS: BP 139/96
[2018-11-04] VITALS: BP 122/85
[2018-11-04] MEDS: HYDROCODONE/ACETAMINOPHEN 5/325MG TABLET PO PRN ×7 (03:41→23:52)
[2018-11-04] MEDS: ONDANSETRON HCL 4MG/2ML INJ IV SCH ×6 (03:59→22:43)
[2018-11-04 04:00] VITALS: BP 122/74
[2018-11-04 08:00] VITALS: BP 119/100
[2018-11-04] MEDS: BLOOD SUGAR DIAGNOSTIC STRIP TEST SCH (09:00)
[2018-11-04] MEDS: FAMOTIDINE 20MG/2ML VIAL IV SCH ×2 (09:00→22:42)
[2018-11-04] MEDS: BUPROPION HCL 150MG TABLET XL 24HR PO SCH (09:08)
[2018-11-04 12:00] VITALS: BP 122/98
[2018-11-04 16:00] VITALS: BP 137/97
[2018-11-04] MEDS: LORAZEPAM 2MG/ML CPJ IV PRN (16:21)
[2018-11-04 20:00] VITALS: BP 111/79
[2018-11-05] VITALS: BP 108/72
[2018-11-05] MEDS: LORAZEPAM 2MG/ML CPJ IV PRN ×2 (01:15→20:03)
[2018-11-05] MEDS: ONDANSETRON HCL 4MG/2ML INJ IV SCH ×6 (04:00→20:00)
[2018-11-05 08:00] VITALS: BP 134/87
[2018-11-05] MEDS: HYDROCODONE/ACETAMINOPHEN 5/325MG TABLET PO PRN ×5 (08:00→23:31)
[2018-11-05] MEDS: FAMOTIDINE 20MG/2ML VIAL IV SCH ×2 (08:49→20:03)
[2018-11-05] MEDS: BUPROPION HCL 150MG TABLET XL 24HR PO SCH (08:49)
[2018-11-05] MEDS: BLOOD SUGAR DIAGNOSTIC STRIP TEST SCH (09:00)
[2018-11-05 12:00] VITALS: BP 134/87
[2018-11-05 16:00] VITALS: BP 107/81
[2018-11-05 16:12] LABS: BASOPHILS % 0.5 % (0.0-2.0); HEMOGLOBIN. 8.9 g/dL (12.0-16.0); LYMPHOCYTES % 8.8 % (20.0-50.0); MEAN CORPUSCULAR HEMOGLOBIN 26.4 pg (28.0-32.0); MEAN CORPUSCULAR VOLUME 80.3 fL (81.0-99.0); MONOCYTES % 10.7 % (2.0-8.0); PLATELET 332 x1000/uL (130-400); RED BLOOD CELL COUNT 3.37 mill/uL (4.2-5.4); RED CELL DISTRIBUTION WIDTH 16.8 % (11.6-14.6)
[2018-11-05 20:00] VITALS: BP 137/87
[2018-11-05] MEDS: ONDANSETRON HCL 4MG/2ML INJ IV PRN (20:04)
[2018-11-06] VITALS: BP 121/87
[2018-11-06 04:00] VITALS: BP 120/79
[2018-11-06] MEDS: ONDANSETRON HCL 4MG/2ML INJ IV SCH ×3 (04:00→08:42)
[2018-11-06] MEDS: HYDROCODONE/ACETAMINOPHEN 5/325MG TABLET PO PRN ×5 (06:16→20:51)
[2018-11-06 08:00] VITALS: BP 132/80
[2018-11-06] MEDS: FAMOTIDINE 20MG/2ML VIAL IV SCH ×2 (08:42→20:52)
[2018-11-06] MEDS: BUPROPION HCL 150MG TABLET XL 24HR PO SCH (08:42)
[2018-11-06] MEDS: BLOOD SUGAR DIAGNOSTIC STRIP TEST SCH (09:00)
[2018-11-06 12:00] VITALS: BP 115/89
[2018-11-06] MEDS: ONDANSETRON HCL 4MG/2ML INJ IV PRN (13:27)
[2018-11-06 16:00] VITALS: BP 132/90
[2018-11-06 20:00] VITALS: BP 126/78
[2018-11-06] MEDS: LORAZEPAM 2MG/ML CPJ IV PRN (21:35)
[2018-11-07] VITALS: BP 132/78
[2018-11-07] MEDS: ONDANSETRON HCL 4MG/2ML INJ IV PRN (02:19)
[2018-11-07] MEDS: HYDROCODONE/ACETAMINOPHEN 5/325MG TABLET PO PRN ×3 (02:21→09:27)
[2018-11-07 04:00] VITALS: BP 126/87
[2018-11-07] MEDS: FAMOTIDINE 20MG/2ML VIAL IV SCH (09:26)
[2018-11-07] MEDS: BUPROPION HCL 150MG TABLET XL 24HR PO SCH (09:26)
[2018-11-07 11:01] VITALS: BP 132/89
== END 2018-11-07 12:26 | disposition home health service (06) | DRG 330 ==
LOC: OPOBV 12:20 → 6EST 12:21
PROVIDERS: ADMIT Surgery; ATTEND Surgery
PROC: 0DBB0ZZ Excision of Ileum, Open Approach (ICD-10-PCS; principal; 2018-10-20)
PROC: 0DQP0ZZ Repair Rectum, Open Approach (ICD-10-PCS; 2018-10-20)
PROC: 02HV33Z Insertion of Infusion Device into Superior Vena Cava, Percutaneous Approach (ICD-10-PCS; 2018-10-22)
PROC: B548ZZA Ultrasonography of Superior Vena Cava, Guidance (ICD-10-PCS; 2018-10-22)
DX: K91.89 Other postprocedural complications and disorders of digestive system (principal); T81.31XA Disruption of external operation (surgical) wound, not elsewhere classified, initial encounter; K56.7 Ileus, unspecified; N82.3 Fistula of vagina to large intestine; Y83.8 Other surgical procedures as the cause of abnormal reaction of the patient, or of later complication, without mention of misadventure at the time of the procedure; Z85.048 Personal history of other malignant neoplasm of rectum, rectosigmoid junction, and anus; Z90.710 Acquired absence of both cervix and uterus; Y92.89 Other specified places as the place of occurrence of the external cause
CPT/HCPCS: 36415; 36569; 71045; 74018; 74176; 74177; 76937; 80048; 80051; 82465; 82962; 83735; 84100; 84134; 84478; 85027; 86850; 86900; 86920; 97162; C1725; C1758; C1769; J0330; J1100; J1170; J1956; J2060; J2250; J2270; J2405; J2704; J2710; J3010; J3490; J7040; Q9967

== ENCOUNTER → 2019-01-11 | Day surgery (SDC) | payer BC ==
[~2019-01-11] VITALS: Ht 167.6 cm; Wt 70.3 kg
[2019-01-11] VITALS (15 sets, daily range): BP systolic 124–152; BP diastolic 74–88
[~2019-01-11] MED LIST changes: +CEFAZOLIN 1000MG PREMIX 50 ML IV ONE; +FENTANYL CITRATE/PF 50MCG/ML 2ML VIAL IV ONE; +FENTANYL CITRATE/PF 50MCG/ML 2ML VIAL ONE; +LIDOCAINE HCL 1% 20ML VIAL (Pyxis) INJ ONE; +LIDOCAINE HCL/EPINEPHRINE 1%-EPI 1:100,000 20 ML VIAL ONE; +MIDAZOLAM HCL 2 MG/2 ML VIAL ONE; +MIDAZOLAM HCL 5 MG/5 ML VIAL IV ONE; +SODIUM BICARBONATE 4% (2.4MEQ) 5ML VIAL IV ONE
== END | disposition home or self-care (01) ==
LOC: AUDIO 08:42
PROVIDERS: ATTEND Internal Medicine Hematology & Oncology
DX: C20 Malignant neoplasm of rectum (principal); Z79.899 Other long term (current) drug therapy; Z98.890 Other specified postprocedural states
CPT/HCPCS: 36561; 76937; 77001; J0690; J2250; J3010; J3490

== ENCOUNTER → 2020-01-11 | Outpatient (CLI) | payer BC ==
[~2020-01-11] MED LIST changes: -CEFAZOLIN 1000MG PREMIX 50 ML IV ONE; -FENTANYL CITRATE/PF 50MCG/ML 2ML VIAL IV ONE; -FENTANYL CITRATE/PF 50MCG/ML 2ML VIAL ONE; -LIDOCAINE HCL 1% 20ML VIAL (Pyxis) INJ ONE; -LIDOCAINE HCL/EPINEPHRINE 1%-EPI 1:100,000 20 ML VIAL ONE; -MIDAZOLAM HCL 2 MG/2 ML VIAL ONE; -MIDAZOLAM HCL 5 MG/5 ML VIAL IV ONE; -SODIUM BICARBONATE 4% (2.4MEQ) 5ML VIAL IV ONE
[2020-01-11 10:39] LABS: PARTIAL THROMBOPLASTIN TIME 27.5 sec (23.4-31.0); PROTHROMBIN TIME 10.8 sec (9.6-11.0)
== END | disposition home or self-care (01) ==
LOC: LAB 09:37
PROVIDERS: ATTEND Internal Medicine Hematology & Oncology
DX: Z03.818 Encounter for observation for suspected exposure to other biological agents ruled out (principal); I10 Essential (primary) hypertension
CPT/HCPCS: 36415; 85610; 85730; U0003

== ENCOUNTER → 2020-01-16 | Day surgery (SDC) | payer BC ==
[2020-01-16] VITALS (14 sets, daily range): BP systolic 122–136; BP diastolic 70–89
[~2020-01-16] VITALS: Ht 167.6 cm; Wt 72.6 kg
[~2020-01-16] MED LIST changes: +CEFAZOLIN 1000MG PREMIX 50 ML IV ONE; +FENTANYL CITRATE/PF 50MCG/ML 2ML VIAL IV ONE; +FENTANYL CITRATE/PF 50MCG/ML 2ML VIAL ONE; +LIDOCAINE HCL 1% 20ML VIAL (Pyxis) INJ ONE; +SODIUM BICARBONATE 4% (2.4MEQ) 5ML VIAL IV ONE
== END | disposition home or self-care (01) ==
LOC: ANGIO 08:38
PROVIDERS: ATTEND Internal Medicine Hematology & Oncology
DX: C20 Malignant neoplasm of rectum (principal); Z79.899 Other long term (current) drug therapy; Z88.8 Allergy status to other drugs, medicaments and biological substances
CPT/HCPCS: 36590; J0690; J3010; J3490; 77001; 99152; 99153; G0500

== ENCOUNTER → 2020-09-20 | Day surgery (SDC) | payer BC ==
[~2020-09-20] VITALS: Ht 167.6 cm; Wt 65.8 kg
[2020-09-20] VITALS (25 sets, daily range): BP systolic 13–153; BP diastolic 73–93
[~2020-09-20] MED LIST changes: -CEFAZOLIN 1000MG PREMIX 50 ML IV ONE; +CEFAZOLIN 1000MG PREMIX 50 ML IV SCH; -FENTANYL CITRATE/PF 50MCG/ML 2ML VIAL ONE; +LIDOCAINE HCL/EPINEPHRINE 1%-EPI 1:100,000 20 ML VIAL ONE; +MIDAZOLAM HCL 5 MG/ML VIAL IV ONE
== END | disposition home or self-care (01) ==
LOC: RADONC 08:37
PROVIDERS: ATTEND Internal Medicine Hematology & Oncology
DX: Z45.2 Encounter for adjustment and management of vascular access device (principal); C20 Malignant neoplasm of rectum; Z79.899 Other long term (current) drug therapy; Z98.890 Other specified postprocedural states; Z88.8 Allergy status to other drugs, medicaments and biological substances
CPT/HCPCS: 36561; 76937; 77001; C1769; J3490; J7040; 99152; 99153; J0690; J2250; J3010; G0500

== ENCOUNTER → 2020-10-03 | Outpatient (CLI) | payer BC ==
[~2020-10-03] MED LIST changes: -CEFAZOLIN 1000MG PREMIX 50 ML IV SCH; -FENTANYL CITRATE/PF 50MCG/ML 2ML VIAL IV ONE; -LIDOCAINE HCL/EPINEPHRINE 1%-EPI 1:100,000 20 ML VIAL ONE; -MIDAZOLAM HCL 5 MG/ML VIAL IV ONE
== END | disposition home or self-care (01) ==
LOC: RAD 11:14
PROVIDERS: ATTEND Internal Medicine Hematology & Oncology
DX: Z45.2 Encounter for adjustment and management of vascular access device (principal); Z79.899 Other long term (current) drug therapy
CPT/HCPCS: 99211; Z7610; J3490

== ENCOUNTER 2022-06-09 18:53 | Inpatient (IN) | payer BC ==
[~2022-06-09] VITALS: Ht 167.6 cm; Wt 60.3 kg
[~2022-06-09 18:53] MED LIST changes: -LIDOCAINE HCL 1% 20ML VIAL (Pyxis) INJ ONE; -SODIUM BICARBONATE 4% (2.4MEQ) 5ML VIAL IV ONE
[2022-06-09 20:43] LABS: BASOPHILS % 0.3 % (0.0-2.0); EOSINOPHILS % 0.9 % (0.0-5.0); HEMATOCRIT. 34.7 % (36.0-48.0); LYMPHOCYTES % 10.4 % (20.0-50.0); MEAN CORPUSCULAR HEMOGLOBIN 24.5 pg (28.0-32.0); MEAN PLATELET VOLUME 6.8 fl (7.4-10.4); MONOCYTES % 8.1 % (2.0-8.0); NEUTROPHILS % 80.3 % (40.0-76.0); PLATELET 292 x1000/uL (130-400); RED CELL DISTRIBUTION WIDTH 16.6 % (11.6-14.6)
[2022-06-09 20:54] LABS: CHLORIDE 99 mEq/L (98-107)
[2022-06-09 21:05] LABS: ETHANOL BLOOD < 10 mg/dL
[2022-06-09] MEDS ORDERED: MORPHINE SULFATE 4 MG/ML CPJ (NOT FOR IM USE) IV NR (21:30)
[2022-06-09 21:48] LABS: CLARITY URINE CLEAR (CLEAR); COLOR URINE YELLOW (YELLOW); KETONES URINE NEGATIVE (NEGATIVE); LEUKOCYTE ESTERASE URINE 1+ (NEGATIVE); NITRITE URINE NEGATIVE (NEGATIVE); OCCULT BLOOD URINE NEGATIVE (NEGATIVE); PROTEIN URINE TRACE (NEGATIVE); UROBILINOGEN URINE 0.2 E.U./dL (0.2-1.0)
[2022-06-09] MEDS: TRIAMTERENE/HCTZ 37.5/25MG TABLET PO SCH (21:50)
[2022-06-09 22:17] LABS: *AMPHETAMINES SCREEN URINE NEGATIVE (NEGATIVE); *BARBITURATES SCREEN URINE NEGATIVE (NEGATIVE); *BENZODIAZEPINES SCREEN URINE NEGATIVE (NEGATIVE); *COCAINE SCREEN URINE NEGATIVE (NEGATIVE); CANNABINOID URINE SCREEN PRESUMTIVE POSITIVE (NEGATIVE); METHADONE URINE SCREEN NEGATIVE (NEGATIVE); OPIATES URINE SCREEN PRESUMTIVE POSITIVE (NEGATIVE); PHENCYCLIDINE URINE SCREEN NEGATIVE (NEGATIVE)
[2022-06-09] MEDS ORDERED: LEVETIRACETAM 500MG PREMIX 100 ML IV NR (22:30)
[2022-06-09] MEDS ORDERED: CEFTRIAXONE 1 G PREMIX 50 ML IV NR (22:30)
[2022-06-09] MEDS ORDERED: DEXAMETHASONE 10 MG/ML VIAL IV NR (23:15)
[2022-06-09] MEDS ORDERED: SODIUM CHLORIDE 0.9% 1,000 ML IV ONE (23:15)
[2022-06-10] MEDS ORDERED: TRIA1TAB92 MT (05:04)
[2022-06-10] MEDS ORDERED: PANT40TA51 MT (05:04)
[2022-06-10] MEDS ORDERED: MELO-104 MT (05:04)
[2022-06-10] MEDS ORDERED: ALPRAZOLAM 0.5 MG TABLET PO PRN (05:30)
[2022-06-10 05:51] VITALS: BP 166/95
[2022-06-10] MEDS ORDERED: NALOXONE HCL 0.4MG/ML VIAL IV PRN (06:00)
[2022-06-10] MEDS: AMLODIPINE 5MG TABLET PO SCH (06:38)
[2022-06-10] MEDS: DEXAMETHASONE 10 MG/ML VIAL IV SCH ×3 (06:38→17:24)
[2022-06-10] MEDS: PANTOPRAZOLE 40MG DR TABLET PO SCH (06:40)
[2022-06-10] MEDS: HYDROMORPHONE HCL/PF 2MG/ML CPJ IV PRN ×3 (06:41→16:31)
[2022-06-10 08:00] VITALS: BP 143/79
[2022-06-10] MEDS ORDERED: CLONIDINE 0.1MG TABLET PO PRN (08:45)
[2022-06-10] MEDS ORDERED: LACTULOSE 20G/30ML UDC PO PRN (08:45)
[2022-06-10] MEDS ORDERED: ONDANSETRON HCL 4MG/2ML INJ IV PRN (08:45)
[2022-06-10] MEDS ORDERED: MELOXICAM 7.5MG TABLET PO SCH (09:00)
[2022-06-10] MEDS: TRIAMTERENE/HCTZ 37.5/25MG TABLET PO SCH ×2 (09:09→09:16)
[2022-06-10] MEDS: LEVETIRACETAM 500MG TABLET PO SCH ×2 (09:10→21:00)
[2022-06-10] MEDS: LEVOFLOXACIN 500MG PREMIX 100 ML IV SCH (09:10)
[2022-06-10] MEDS: SODIUM CHL 0.45% + KCL 20MEQ/L 1,000 ML IV SCH (09:10)
[2022-06-10 12:00] VITALS: BP 157/83
[2022-06-10] MEDS ORDERED: IOHEXOL-300 100 ML BOTTLE ONE (12:48)
[2022-06-10] MEDS ORDERED: GADOTERATE MEGLUMINE 5 MMOL/10 ML VIAL IV ONE (15:41)
[2022-06-10 16:00] VITALS: BP 146/79
[2022-06-10 20:00] VITALS: BP 153/82
[2022-06-11] VITALS: BP 142/74
[2022-06-11] MEDS: DEXAMETHASONE 10 MG/ML VIAL IV SCH ×3 (00:44→11:59)
[2022-06-11 04:00] VITALS: BP 155/83
[2022-06-11] MEDS: SODIUM CHL 0.45% + KCL 20MEQ/L 1,000 ML IV SCH (06:18)
[2022-06-11] MEDS: PANTOPRAZOLE 40MG DR TABLET PO SCH (06:19)
[2022-06-11] MEDS: HYDROMORPHONE HCL/PF 2MG/ML CPJ IV PRN ×2 (06:27→11:59)
[2022-06-11 07:25] LABS: HEMATOCRIT. 32.9 % (36.0-48.0); HEMOGLOBIN. 10.7 g/dL (12.0-16.0); MEAN CORPUSCULAR HEMOGLOBIN 24.5 pg (28.0-32.0); MEAN CORPUSCULAR VOLUME 75.3 fL (81.0-99.0); MEAN PLATELET VOLUME 7.5 fl (7.4-10.4); MONOCYTES % 3.3 % (2.0-8.0); NEUTROPHILS % 84.7 % (40.0-76.0); PLATELET 325 x1000/uL (130-400); RED BLOOD CELL COUNT 4.37 mill/uL (4.2-5.4); RED CELL DISTRIBUTION WIDTH 16.3 % (11.6-14.6)
[2022-06-11 08:01] VITALS: BP 137/76
[2022-06-11] MEDS: LEVETIRACETAM 500MG TABLET PO SCH (08:25)
[2022-06-11] MEDS: AMLODIPINE 5MG TABLET PO SCH (08:25)
[2022-06-11] MEDS: LEVOFLOXACIN 500MG PREMIX 100 ML IV SCH (08:25)
[2022-06-11] MEDS ORDERED: LEVO-65 MT (09:03)
[2022-06-11] MEDS ORDERED: AMLO5TAB88 PO (09:03)
[2022-06-11] MEDS ORDERED: PANT40TA51 PO (09:03)
[2022-06-11] MEDS ORDERED: DEXA4TAB PO (09:03)
[2022-06-11] MEDS ORDERED: KEPP500 PO (09:03)
[2022-06-11 09:27] LABS: CHLORIDE 101 mEq/L (98-107)
[2022-06-11 09:37] VITALS: BP 136/76
[2022-06-11 12:00] VITALS: BP 129/85
[2022-06-11 12:07] LABS: TOTAL IRON BINDING CAPACITY 326 ug/dL (250-450)
[2022-06-12 08:13] LABS: CA 27.29 16.2 U/mL (0.0-38.6); CANCER ANTIGEN 125 5.2 U/mL (0.0-38.1)
== END 2022-06-11 15:00 | disposition home or self-care (01) | DRG 54 ==
LOC: ER 19:27 → MICUSO 23:08 → EDBEDREQ 23:14 → EDBEDREQTM 23:14 → 8WST 06-10 03:37
PROVIDERS: ADMIT Internal Medicine Geriatric Medicine; ATTEND Internal Medicine Geriatric Medicine
DX: C79.31 Secondary malignant neoplasm of brain (principal); G93.6 Cerebral edema; I61.9 Nontraumatic intracerebral hemorrhage, unspecified; G40.89 Other seizures; N39.0 Urinary tract infection, site not specified; C18.9 Malignant neoplasm of colon, unspecified; C34.90 Malignant neoplasm of unspecified part of unspecified bronchus or lung; I10 Essential (primary) hypertension; R59.0 Localized enlarged lymph nodes; D50.9 Iron deficiency anemia, unspecified; Z79.899 Other long term (current) drug therapy; Z80.0 Family history of malignant neoplasm of digestive organs; Z92.3 Personal history of irradiation; Z91.018 Allergy to other foods; Z92.21 Personal history of antineoplastic chemotherapy
CPT/HCPCS: 36415; 70553; 71045; 71260; 74177; 80053; 80305; 80320; 81003; 82140; 82378; 82962; 83540; 83550; 83605; 84145; 84484; 85025; 86300; 86301; 86304; 93005; 93306; 99291; A6261; A9577; J0696; J1100; J1170; J1953; J1956; J2270; J3480; Q9967; G0480

== ENCOUNTER 2022-08-06 15:10 | Emergency (ER) | payer BC ==
[~2022-08-06] VITALS: Ht 170.2 cm; Wt 64.0 kg
[~2022-08-06 15:10] MED LIST changes: +AMLO5TAB88 PO; +DEXA4TAB PO; +KEPP500 PO; +LEVO-65 MT; -LOSA1TAB37 PO; +PANT40TA51 MT; +PANT40TA51 PO; -RANI150T7 PO
[2022-08-06] MEDS ORDERED: LEVETIRACETAM 500MG PREMIX 100 ML IV ONE (15:30)
[2022-08-06 17:09] LABS: HEMOGLOBIN. 10.7 g/dL (12.0-16.0); MEAN CORPUSCULAR HEMOGLOBIN 25.1 pg (28.0-32.0); MEAN CORPUSCULAR VOLUME 77.5 fL (81.0-99.0); MEAN PLATELET VOLUME 7.6 fl (7.4-10.4); PLATELET 275 x1000/uL (130-400); RED BLOOD CELL COUNT 4.25 mill/uL (4.2-5.4); RED CELL DISTRIBUTION WIDTH 21.2 % (11.6-14.6)
[2022-08-06 17:24] LABS: CHLORIDE 106 mEq/L (98-107)
[2022-08-06] MEDS ORDERED: MORPHINE SULFATE 4 MG/ML CPJ (NOT FOR IM USE) IV ONE (17:30)
[2022-08-06 17:37] LABS: PLATELET ESTIMATE NORMAL
[2022-08-06] MEDS ORDERED: HYDROMORPHONE HCL/PF 2MG/ML CPJ IV STA (17:42)
[2022-08-06 17:49] LABS: CLARITY URINE CLEAR (CLEAR); COLOR URINE YELLOW (YELLOW); KETONES URINE NEGATIVE (NEGATIVE); LEUKOCYTE ESTERASE URINE TRACE (NEGATIVE); NITRITE URINE NEGATIVE (NEGATIVE); OCCULT BLOOD URINE NEGATIVE (NEGATIVE); PROTEIN URINE NEGATIVE (NEGATIVE); SPECIFIC GRAVITY URINE 1.013 (1.005-1.030); UROBILINOGEN URINE 0.2 E.U./dL (0.2-1.0)
[2022-08-06 19:21] VITALS: BP 168/87
== END 2022-08-06 19:22 | disposition home or self-care (01) ==
LOC: ER 15:10
DX: G40.909 Epilepsy, unspecified, not intractable, without status epilepticus (principal); C80.1 Malignant (primary) neoplasm, unspecified; C79.31 Secondary malignant neoplasm of brain; Z92.21 Personal history of antineoplastic chemotherapy; Z91.018 Allergy to other foods; Z88.8 Allergy status to other drugs, medicaments and biological substances
CPT/HCPCS: 36415; 70450; 80053; 81003; 85025; 96365; 96375; 99284; J1170; J1953